=== PATIENT | female | born 1970 | race Caucasian/White ===

== ENCOUNTER 2019-07-26 05:15 | Emergency (ER) | payer BC ==
[2019-07-26] MEDS ORDERED: Ketorolac 60 MG/2 ML SDV IM ONE (05:43)
--- NOTE | 2019-07-26 06:11 | EDM.PDOC ---
ED HPI GENERAL MEDICAL PROBLEM - General Chief Complaint: Neck Problem Stated Complaint: HEADACHE Time Seen by Provider: 07/26/19 05:25 - History of Present Illness INITIAL COMMENTS - FREE TEXT/NARRATIVE: HISTORY AND PHYSICAL: History of present illness: The patient is a 49-year-old female with a history of hypertension who follows at [facility] and presents with 3 days of posterior mid neck pain radiating to her head that has not responded to [id number] ibuprofen and Tylenol. The patient says that over this past weekend she had 2 days of vertiginous symptoms where she felt the room was spinning she had nausea and vomiting and felt better with keeping her head still. She has had episodes of vertigo in the past but never got a formal diagnosis but her daughter is a physical therapist and has taught her different maneuvers to assist with vertiginous symptoms which usually help. She says that she and her daughter have self diagnosed her with the vertigo. The patient said that when she had the dizziness nausea and vomiting she did not have a headache or neck pain and that once those symptoms improved by Tuesday she started having this mid neck pain that radiated up to her head. It did not seem to localize right or left and she doesn't recall any specific injury or behavior that may have triggered it. When the neck and head pain started she was not having the dizziness nausea or vomiting. She has no back pain no extremity weakness numbness or tingling no fevers chills or upper respiratory symptoms abdominal pain and has not had nausea or vomiting in the last several days. The patient has tried [id number] ibuprofen, 400 mg per dose as well as [id number]-[id number] Tylenol and it is not worked. She says that she had difficulty sleeping due to this discomfort which is why she came in here rather than be seen in the clinic. She says that her posterior neck pain is originating from her neck and she does not have pain elsewhere on her head. Review of systems: As per history of present illness and below otherwise all systems reviewed and negative. Past medical history: As per history of present illness and as reviewed below otherwise noncontributory. Surgical history: As per history of present illness and as reviewed below otherwise noncontributory. Social history: No reported history of drug or alcohol abuse. Family history: As per history of present illness and as reviewed below otherwise noncontributory. Physical exam: General: Well-developed well-nourished female who is nontoxic and vital signs are noted by me. With movement of her head up and down side to side I cannot elicit more neck or head pain and she is not showing any signs of vertiginous symptoms. HEENT: Atraumatic, normocephalic, pupils reactive, negative for conjunctival pallor or scleral icterus, mucous membranes moist, throat clear, neck supple, nontender, trachea midline. TMs are dulled bilaterally. There are no midline step-offs tenderness defects of the cervical spine and there is some paraspinal and trapezius spasm appreciated on the left and into the paracervical musculature which does not necessarily reproduce the pain. Lungs: Clear to auscultation, breath sounds equal bilaterally, chest nontender. Heart: S1S2, regular rate and rhythm no overt murmurs Abdomen: Soft, nondistended, nontender. NABS Pelvis: Deferred Genitourinary: Deferred. Rectal: Deferred. Extremities: Atraumatic, negative for cords or calf pain. Neurovascular unremarkable. Neuro: Awake, alert, oriented. Cranial nerves II through XII unremarkable. Cerebellum unremarkable. Motor and sensory unremarkable throughout. Exam nonfocal. Tone is normal and strength is intact throughout all extremities against resistance on my evaluation. Back: There are no midline step-offs in his defects of the thoracic or lumbar spine and no posterior rib tenderness Diagnostics: CT of the head and C-spine Therapeutics: Toradol and Norflex I discussed with the patient that I could help her with her symptoms but that I had some concerns about this neck and head pain with respect to the preceding episode vertiginous symptoms. Although they seem to be disconnected with one resolving before the other starts I expressed to her my concern that if the symptoms persist and are testing today is negative but she will need to follow- up with a provider at [facility] to have further evaluation such as MRI MRA of the head and neck. He states understanding. After the medication the patient says that she does feel some improvement but it is not completely gone. She said she did not like the way the Norflex made her feel and does not want any further muscle relaxers. I've advised her to take vbjd-[id number]-[id number] ibuprofen or Aleve in the appropriate doses for her size and weight and I will give her [facility] for tramadol/Voltaren. Again stressed the need for follow-up and patient states understanding. Patient is also aware of the small right lung apical nodule that needs follow-up as an outpatient that was noted incidentally on her CAT scan. Impression: Mid cervical neck pain with cephalgia Definitive disposition and diagnosis as appropriate pending reevaluation and review of above. neck Pain Score (Numeric/FACES): 8 - Related Data Allergies Allergy/AdvReac Type Severity Reaction Status Date / Time No Known Allergies Allergy Verified 07/26/19 05:30 Home Meds: Home Meds Benazepril/Hydrochlorothiazide [Lotensin Hct 20-25 mg Tablet] 1 tab PO DAILY 01/09 [History] Estrogen Patch 0 mg .XX ASDIRECTED 07/26/19 [History] Progesterone, Micronized [Progesterone] 100 mg PO DAILY 07/26/19 [History] buPROPion [buPROPion XL] 150 mg PO DAILY 07/26/19 [History] Past Medical History Cardiovascular History: Reports: Hypertension Psychiatric History: Reports: Depression - Past Surgical History GI Surgical History: Reports: Hernia, Abdominal Social & Family History - Family History Family Medical History: Noncontributory - Tobacco Use Smoking Status *Q: Never Smoker - Recreational Drug Use Recreational Drug Use: No ED ROS GENERAL - Review of Systems Review Of Systems: ROS reveals no pertinent complaints other than HPI. ED EXAM, GENERAL - Physical Exam Exam: See Below (See dictation) Course - Vital Signs Last Recorded V/S: Last Vital Signs Temp 36.1 C 07/26/19 05:20 Pulse 86 07/26/19 05:20 Resp 18 07/26/19 05:20 BP 154/91 H 07/26/19 05:20 Pulse Ox 97 07/26/19 05:20 - Orders/Labs/Meds Meds: Medications Discontinued Medications Generic Name Dose Route Start Last Admin Trade Name Freq PRN Reason Stop Dose Admin Ketorolac Tromethamine 60 mg 07/26/19 05:43 07/26/19 05:56 Toradol IM 07/26/19 05:44 60 mg ONETIME ONE Administration Orphenadrine Citrate 60 mg 07/26/19 05:43 07/26/19 05:58 Norflex IM 07/26/19 05:44 60 mg ONETIME ONE Administration Departure - Departure Time of Disposition: 06:37 Disposition: Home, Self-Care 01 Condition: Good Clinical Impression: Cervical pain (neck) Cephalgia Qualifiers: Headache type: unspecified Headache chronicity pattern: acute headache Intractability: not intractable Qualified Code(s): R51 - Headache - Discharge Information Referrals: Margy Kapoor NP [Primary Care Provider] - Forms: ED Department Discharge Additional Instructions: The following information is given to patients seen in the emergency department who are being discharged to home. This information is to outline your options for follow-up care. We provide all patients seen in our emergency department with a follow-up referral. The need for follow-up, as well as the timing and circumstances, are variable depending upon the specifics of your emergency department visit. If you don't have a primary care physician on staff, we will provide you with a referral. We always advise you to contact your personal physician following an emergency department visit to inform them of the circumstance of the visit and for follow-up with them and/or the need for any referrals to a consulting specialist. The emergency department will also refer you to a specialist when appropriate. This referral assures that you have the opportunity for followup care with a specialist. All of these measure are taken in an effort to provide you with optimal care, which includes your followup. Under all circumstances we always encourage you to contact your private physician who remains a resource for coordinating your care. When calling for followup care, please make the office aware that this follow-up is from your recent emergency room visit. If for any reason you are refused follow-up, please contact the [facility] emergency department at and ask to speak to the emergency department charge nurse. [address] [place] [address] Please connect with your provider or one of his or her colleagues for further care and evaluation of the symptoms as we discussed. If your symptoms persist you may need to have further imaging which can only be done as an outpatient, MRI/MRA of the head and neck. Please continue to monitor your symptoms and keep a symptom journal to help your provider decide the next steps in her care plan. Please use medications as prescribed and needed for breakthrough pain, Voltaren/ tramadol and continues to take kpij-suh-[id number] ibuprofen/Motrin 600 mg every 6 hours or 800 mg every 8 hours. Return to ER as needed and as discussed
--- NOTE | 2019-07-26 06:25 | CT ---
INDICATION : Headache and dizziness TECHNIQUE : Noncontrast CT scan of brain. FINDINGS: No acute intra or extra-axial hemorrhage. The ventricles and sulci are normal size, shape and configuration. No visualized intracranial mass or additional abnormal attenuation. Bony calvarium is normal. IMPRESSION : No significant intracranial radiographic abnormality. Please note that all CT scans at this facility use dose modulation, iterative reconstruction, and/or weight-based dosing when appropriate to reduce radiation dose to as low as reasonably achievable. Dictated by Oswaldo Zeng MD @ Jul 26 2019 6:20AM Signed by Dr. Oswaldo Zeng @ Jul 26 2019 6:24AM
--- NOTE | 2019-07-26 06:31 | CT ---
INDICATION : Pain. TECHNIQUE : CT scan of the cervical spine. Bone and soft tissue windows with sagittal and coronal reconstructions. FINDINGS : No significant fracture. No significant subluxation. No abnormal soft tissue mass lesions. Cervical disc narrowing with spondylitic ridging anterior-posterior at C6-7. No high-grade central or foraminal encroachment. Mild foraminal encroachment right C6-C7. Reversal of upper cervical lordosis is minimal and is likely chronic. There is a nodule in the right lung apex measuring between 3 millimeters and 4 millimeters. Coronal reconstruction image 61 Axial image 196. IMPRESSION : 1. Negative for acute fracture or subluxation. 2. Changes of degenerative cervical spondylosis. 3. Small 3-4 millimeter right apical lung nodule. Suggest follow-up CT scan of the chest. Please note that all CT scans at this facility use dose modulation, iterative reconstruction, and/or weight-based dosing when appropriate to reduce radiation dose to as low as reasonably achievable. Dictated by Oswaldo Zeng MD @ Jul 26 2019 6:29AM Signed by Dr. Oswaldo Zeng @ Jul 26 2019 6:29AM
== END 2019-07-26 06:45 | disposition home or self-care (01) ==
LOC: MW.ED 05:15
DX: M54.2 Cervicalgia (principal); R51 Headache; I10 Essential (primary) hypertension; Z79.899 Other long term (current) drug therapy; F32.9 Major depressive disorder, single episode, unspecified
CPT/HCPCS: 70450; 72125; 96372; 99283; J1885; J2360